=== PATIENT | male | born 1955 | race Two or more races ===

== ENCOUNTER → 2020-05-29 | Outpatient (CLI) | payer OTHER | END | disposition home or self-care (01) | LOC: CT 09:27 | DX: K80.20 Calculus of gallbladder without cholecystitis without obstruction (principal); K42.9 Umbilical hernia without obstruction or gangrene; K40.00 Bilateral inguinal hernia, with obstruction, without gangrene, not specified as recurrent; D73.89 Other diseases of spleen; K86.89 Other specified diseases of pancreas; K44.9 Diaphragmatic hernia without obstruction or gangrene; N20.0 Calculus of kidney | CPT/HCPCS: 74176 ==